=== PATIENT | female | born 1965 | race African-American/Black ===

== ENCOUNTER 2019-02-25 06:01 | Day surgery (SDC) | payer BC ==
[~2019-02-25] VITALS: Ht 167.6 cm; Wt 87.3 kg
[2019-02-25] MEDS ORDERED: meloxicam (07:14)
[2019-02-25] MEDS ORDERED: motrin (07:14)
[2019-02-25 07:15] VITALS: Ht 167.6 cm; Wt 87.3 kg
[2019-02-25 07:23] VITALS: BP 112/68; PULSE 59; RESP 18
[2019-02-25] MEDS ORDERED: FENTAnyl 50 MCG/ML VIAL ONE (08:23)
[2019-02-25] MEDS ORDERED: MIDAZOLAM 1 MG/ML 2 ML INJ ONE ×2 (08:23)
[2019-02-25 08:45] VITALS: BP 116/73; PULSE 62; RESP 16
== END 2019-02-25 10:27 | disposition home or self-care (01) ==
LOC: GIL 06:01
PROVIDERS: ATTEND Internal Medicine Gastroenterology
DX: Z12.11 Encounter for screening for malignant neoplasm of colon (principal); D12.5 Benign neoplasm of sigmoid colon; K64.8 Other hemorrhoids
CPT/HCPCS: 45380; 88305; J2250; J3010; Z7610